=== PATIENT | male | born 1990 | race Two or more races ===

== ENCOUNTER 2018-06-14 12:37 | Emergency (ER) | payer OTHER ==
[~2018-06-14] VITALS: Ht 185.4 cm; Wt 63.5 kg
== END 2018-06-14 14:37 | disposition home or self-care (01) ==
LOC: ER 12:37
DX: M79.642 Pain in left hand (principal)

== ENCOUNTER → 2018-06-14 | Emergency (ER) | payer OTHER ==
[~2018-06-14] VITALS: Ht 175.3 cm; Wt 59.0 kg
== END | disposition left against medical advice (07) ==
LOC: ER 06:19
DX: Z53.20 Procedure and treatment not carried out because of patient's decision for unspecified reasons (principal)